=== PATIENT | male | born 1975 | race African-American/Black ===

== ENCOUNTER 2017-10-26 21:28 | Emergency (ER) | payer OTHER ==
[~2017-10-26] VITALS: Ht 175.3 cm; Wt 77.7 kg
[2017-10-26 22:05] LABS: HEMATOCRIT 48.4 % (38.0-50.0); MCV 83.9 FL (86-99); RBC DIS.WIDTH-SD 39.8 % (39-53); RED BLOOD COUNT 5.77 M/uL (4.00-5.50); WHITE BLOOD COUNT 6.7 K/uL (4.1-10.2)
[2017-10-26 22:14] LABS: CHLORIDE 104 mEq/L (99-109); POTASSIUM 3.5 mEq/L (3.7-5.4); SODIUM 139 mEq/L (136-147)
[2017-10-26 22:16] LABS: GLUCOSE 122 mg/dL (70-99)
[2017-10-26 22:20] LABS: CREATININE 1.4 mg/dL (0.6-1.3); GFR ESTIMATE (CALCULATED) > 59 mL/min/ (58.99-99999); UREA NITROGEN (BUN) 15 mg/dL (9-23)
[2017-10-26 22:28] LABS: TROP-I INTERPRETATION NEGATIVE; TROPONIN-I < 0.01 ng/mL (0.0-0.30)
[2017-10-26 22:50] LABS: PLAT.SUFFICIENCY ADEQUATE; PLATELET CLUMPS PRESENT - PLATELET COUNT APPEARS ADQ.; PLATELET COUNT UNABLE TO REPORT K/uL (156-360)
[2017-10-26 23:17] VITALS: BP 119/81
== END 2017-10-26 23:28 | disposition home or self-care (01) ==
LOC: EME → EDBD 21:28 → EME 23:28
DX: R55 Syncope and collapse (principal); E86.0 Dehydration
CPT/HCPCS: 71046; 80048; 84484; 85027; 93005; 99281; 99285; J7040